=== PATIENT | female | born 1985 | race American Indian/Alaskan Native ===

== ENCOUNTER 2020-12-13 17:37 | Emergency (ER) | payer SELFPAY ==
[2020-12-13 18:07] VITALS: BP 126/76
--- NOTE | 2020-12-13 20:19 | Emergency Department Report ---
ED General Adult HPI - General Chief complaint: Pain General Stated complaint: BODY ACHES Time Seen by Provider: 12/13/20 20:13 Source: patient Mode of arrival: Ambulatory Limitations: No Limitations - History of Present Illness Initial comments: This is a 35-year-old female she presents to the emergency room complaining of body aches sore throat and a tender spot near her navel. Patient states that on she was at a bar playing pool with her friends. There is a 2 hour time span when she cannot recall when she left the location and how she got home. She does admit to drinking alcohol but denies any drug use on . Patient states she woke up at her cousin's home undressed at 2 AM she was able to get in the car and drive herself home patient's not sure what happened d during those 2 hours she has no recollection .she denies any trauma she denies any abnormal vaginal pain or discharge or trauma . She is concerned that she may have been given some type of drug because she cannot remember what happened for 2 hours. This incident occurred 48 hours ago patient states she has no proof that anything happened to her but she is concerned that today she does have a generalized body ache and there is a sore spot to her navel. She has no signs of trauma she has no chest pain shortness of breath no cough no headache just no other complaints Improves with: none Worsens with: none Associated Symptoms: denies other symptoms Treatments Prior to Arrival: none - Related Data Previous Rx's Medication Instructions Recorded Last Taken Type cephALEXin [Keflex] 500 mg PO Q8HR 7 Days #21 cap 12/13/20 Unknown Rx Allergies Allergy/AdvReac Type Severity Reaction Status Date / Time No Known Allergies Allergy Unverified 12/13/20 18:04 ED Review of Systems ROS: Stated complaint: BODY ACHES Other details as noted in HPI Comment: All other systems reviewed and negative Constitutional: no symptoms reported. denies: fever ENT: denies: throat pain, dental pain Cardiovascular: as per HPI Endocrine: no symptoms reported Gastrointestinal: as per HPI Genitourinary: as per HPI Musculoskeletal: as per HPI Skin: as per HPI Neurological: as per HPI ED Past Medical Hx - Past Medical History Previous Medical History?: No - Surgical History Past Surgical History?: Yes Hx Appendectomy: Yes Additional Surgical History: disc replacement. scolosis surgery. x 1 - Social History Smoking Status: Never Smoker Substance Use Type: Alcohol, Marijuana - Medications Home Medications: Home Medications Medication Instructions Recorded Confirmed Last Taken Type cephALEXin [Keflex] 500 mg PO Q8HR 7 Days #21 cap 12/13/20 Unknown Rx ED Physical Exam - General Limitations: No Limitations General appearance: alert, in no apparent distress - Head Head exam: Present: atraumatic - Eye Eye exam: Present: normal appearance - ENT ENT exam: Present: normal exam, mucous membranes moist, TM's normal bilaterally, other (Uvula midline, right tonsil enlarged with erythema and exudate) - Neck Neck exam: Present: normal inspection, full ROM - Respiratory Respiratory exam: Present: normal lung sounds bilaterally - Cardiovascular Cardiovascular Exam: Present: regular rate, normal heart sounds - GI/Abdominal GI/Abdominal exam: Present: soft, normal bowel sounds, other (Small raised area noted to the left navel tender to touch skin intact no erythema small raised bump in the center) - Extremities Exam Extremities exam: Present: normal inspection - Neurological Exam Neurological exam: Present: alert, oriented X3 - Psychiatric Psychiatric exam: Present: normal affect - Skin Skin exam: Present: warm, dry, intact, normal color ED Course Vital Signs 12/13/20 18:04 Temperature 97.9 F Pulse Rate 74 Respiratory 16 Rate Blood Pressure 126/76 O2 Sat by Pulse 99 Oximetry ED Medical Decision Making - Medical Decision Making 35-year-old female complaining of generalized body aches and not recalling a 2- hour span on when she was out playing pool and drinking with friends. She also complained of a tender spot on her navel. On examination she is found to have right enlarged tonsil with exudate. Her navel has a small raised bump with tenderness, rapid strep was done and is negative. I still plan to treat patient with oral antibiotics due to the appearance of her tonsil and possibly in some infection starting on her navel. - Differential Diagnosis Pharyngitis, skin infection Critical Care Time: No Critical care attestation.: If time is entered above; I have spent that time in minutes in the direct care of this critically ill patient, excluding procedure time. ED Disposition Clinical Impression: Skin infection Pharyngitis Qualifiers: Pharyngitis/tonsillitis etiology: other specified organisms Qualified Code(s): J02.8 - Acute pharyngitis due to other specified organisms Disposition: DC-01 TO HOME OR SELFCARE Is pt being admited?: No Does the pt Need Aspirin: No Condition: Stable Instructions: Pharyngitis, Cellulitis, Adult, [id number] Additional Instructions: Gargle with warm salt water least 3 times a day. Wash your skin especially the navel area with soap and water and pat dry. Take antibiotic as prescribed. Follow-up with your primary care doctor or Dr. Smith in 3 to 5 days. If you are concerned about any sexually transmitted diseases follow-up with your local health department the [facility] phone number is [phone] Prescriptions: cephALEXin [Keflex] 500 mg PO Q8HR 7 Days #21 cap Referrals: INDIRA SMITH MD [Staff Physician] - 3-5 Days Time of Disposition: 21:14
== END 2020-12-13 21:33 | disposition home or self-care (01) ==
LOC: ED 17:37
DX: J02.8 Acute pharyngitis due to other specified organisms (principal); L08.9 Local infection of the skin and subcutaneous tissue, unspecified; F12.90 Cannabis use, unspecified, uncomplicated; Z79.899 Other long term (current) drug therapy; Z90.49 Acquired absence of other specified parts of digestive tract; Z98.890 Other specified postprocedural states
CPT/HCPCS: 87116; 87430

== ENCOUNTER 2021-04-01 21:16 | Emergency (ER) | payer SELFPAY ==
[2021-04-01 22:10] VITALS: BP 109/63
[2021-04-01 23:06] LABS: Basophils % (Auto) 0.2 % (0.0-1.8); Eosinophils # (Auto) 0.1 K/mm3 (0.0-0.4); Eosinophils % (Auto) 1.2 % (0.0-4.3); Hematocrit 36.8 % (30.3-42.9); Hemoglobin 12.3 gm/dl (10.1-14.3); Lymphocytes % (Auto) 41.5 % (13.4-35.0); Mean Corpuscular HGB Conc 34 % (30-34); Mean Corpuscular Volume 86 fl (79-97); Monocytes # (Auto) 0.7 K/mm3 (0.0-0.8); Monocytes % (Auto) 10.5 % (0.0-7.3); Platelet Count 229 K/mm3 (140-440); Red Cell Distribution Width 18.6 % (13.2-15.2)
[2021-04-01 23:25] LABS: Bilirubin,Urine NEG (Negative); Blood,Urine SM (Negative); Color,Urine Yellow (Yellow); Protein,Urine <15 mg/dL mg/dL (Negative); Urobilinogen,Urine < 2.0 mg/dL (<2.0); WBC,Urine < 1.0 /HPF (0.0-6.0)
[2021-04-01 23:32] LABS: Alanine Aminotransferase 15 units/L (7-56); Blood Urea Nitrogen 7 mg/dL (7-17); Calcium 8.8 mg/dL (8.4-10.2); Hemolysis Index 7
[2021-04-01 23:50] LABS: BUN/Creatinine Ratio 14
--- NOTE | 2021-04-02 01:02 | Emergency Department Report ---
ED General Adult HPI - General Chief complaint: Abdominal Pain Stated complaint: ABD PAIN/4WKS PREG/LOW BACK PAIN Time Seen by Provider: 04/02/21 00:47 Source: patient Mode of arrival: Ambulatory Limitations: No Limitations - History of Present Illness Initial comments: 35-year-old female patient (; LMP 02/01/21) with history of appendectomy presents to the emergency department with complaints of lower abdominal pain for 2 weeks and vaginal spotting starting today. Patient has not been evaluated by an quality assurance tester at any point during her . Patient states she was seen at another emergency department approximately 2 weeks ago, at which time her beta-hCG level was approximately 300. She states an ultrasound was attempted but no fetus was visualized due to low hCG. She did not follow-up on an outpatient basis for repeat sonogram/laboratory testing. She has only noticed the vaginal spotting while using the bathroom. Denies fever, chills, nausea, vomiting, diarrhea, constipation, chest pain, shortness of breath, syncope, urinary symptoms. Denies other complaints at this time. - Related Data Previous Rx's Medication Instructions Recorded Last Taken Type cephALEXin [Keflex] 500 mg PO Q8HR 7 Days #21 cap 12/13/20 Unknown Rx Allergies Allergy/AdvReac Type Severity Reaction Status Date / Time No Known Allergies Allergy Unverified 12/13/20 18:04 ED Review of Systems ROS: Stated complaint: ABD PAIN/4WKS PREG/LOW BACK PAIN Other details as noted in HPI Other: GENERAL: Negative for fever, chills, weight change, anorexia, fatigue. ENT: Negative for ear pain, difficulty hearing, sore throat, nasal congestion, epistaxis. CARDIOVASCULAR: Negative for chest pain, palpitations, lower extremity swelling. PULMONARY: Negative for cough, dyspnea, wheezing, orthopnea, cyanosis. GASTROINTESTINAL: Positive for abdominal pain. GENITOURINARY: Positive for vaginal bleeding. MUSCULOSKELETAL: Negative for joint pain, joint swelling, myalgias, back pain, neck pain. NEUROLOGICAL: Negative for headache, seizure, syncope, paresthesias, weakness. INTEGUMENTARY: Negative for erythema, rash, diaphoresis, laceration, ecchymosis. HEMATOLOGICAL: Negative for hemoptysis, hematemesis, hematochezia, hematuria. PSYCHIATRIC: Negative for hallucinations, suicidal ideation, homicidal ideation, anxiety, depression. ED Past Medical Hx - Past Medical History Previous Medical History?: No - Surgical History Past Surgical History?: Yes Hx Appendectomy: Yes Additional Surgical History: disc replacement. scolosis surgery. x 1 - Social History Smoking Status: Current Every Day Smoker Substance Use Type: Marijuana - Medications Home Medications: Home Medications Medication Instructions Recorded Confirmed Last Taken Type cephALEXin [Keflex] 500 mg PO Q8HR 7 Days #21 cap 12/13/20 Unknown Rx ED Physical Exam - General Limitations: No Limitations - Other Other exam information: General: Awake and alert. No acute distress. Head: Atraumatic, normocephalic. Eyes: EOMI. Pupils are equal and round. Normal sclera and conjunctiva. ENT: Oral mucosa is moist. Normal pharyngeal exam. Neck: Supple. No lymphadenopathy. Pulmonary: No respiratory distress. Clear to auscultation bilaterally. Cardiac: Regular rate and rhythm. Pulses are palpable and equal bilaterally. No lower extremity cyanosis or edema. Skin: Warm and dry. No rashes. Abdomen: Soft, non-tender, non-protuberant. No guarding, rigidity, or rebound. Bowel sounds are normal. No organomegaly or masses noted. Pelvic: Female rfid systems engineer (Ric ARREDONDO) present. Normal external inspection. Cervical os is closed. No blood in the vaginal vault. No discharge. No adnexal tenderness or masses. No uterine tenderness. Back: Normal alignment. No CVA tenderness. Extremities: Symmetrical. Full range of motion intact. Neurological: Alert and oriented, appropriately interactive, no focal deficits. Psych: Cooperative. Appropriate mood and affect. Speech is evenly metered. Thoughts are logically construed. ED Course Vital Signs 04/01/21 22:08 Temperature 98.6 F Pulse Rate 74 Respiratory 18 Rate Blood Pressure 109/63 O2 Sat by Pulse 100 Oximetry ED Medical Decision Making - Lab Data Result diagrams: 04/01/21 22:33 04/01/21 22:33 - Radiology Data TECHNIQUE: Transabdominal. Transvaginal Duplex Color Doppler used: Yes. COMPARISON: None available FINDINGS: Uterus: Present. Size: 10.6 x 5.5 x 6.4 cm. Endometrial complex: Possible early gestational sac dated 6 weeks 5 days. No pole or yolk sac. Mass lesions: None. Additional findings: None. Right Ovary -- Normal. Blood flow: Normal. Cyst or mass: None. Left Ovary-- Normal. Blood flow: Normal. Cyst or mass: None. Urinary Bladder: Normal. Free Fluid: None. Additional Findings: None. IMPRESSION: 1. Possible early gestational sac. 2. No adnexal abnormality. Signer Name: Terry Garcia MD Signed: 04/02/2021 3:58 AM Workstation Name: [id number] Transcribed By: ES Dictated By: Terry Garcia MD Electronically Authenticated By: Terry Garcia MD Signed Date/Time: 04/02/21357 DD/ 6 TD/TT: - Medical Decision Making Differential diagnosis including but not limited to: ectopic , implantation bleed, septic , threatened , molar On reevaluation, patient remains stable. Repeat abdominal exam is benign. Beta HCG ~15,000. Patient is Rh (+). Ultrasound shows possible early gestational sac needed 6 weeks, 5 days, intrauterine position confirmed. Cervical os is closed. Patient is afebrile and hemodynamically stable. No clinical indication for further diagnostic work-up on an emergent basis at this time. Patient will be discharged home with referral to local quality assurance tester for close outpatient f ollow-up. She has been provided with a copy of her imaging results to take with her to her follow-up appointment. It was explained to the patient that demise has not been definitively confirmed nor ruled out during today's evaluation, and she would require further diagnostic testing on an outpatient basis to assess the viability of her . Patient expressed understanding and is agreeable to plan of care. Strict return precautions provided. Repeat exam is unremarkable and benign. History, exam, diagnostic testing, and current condition do not suggest worrisome pathology to warrant further testing, continued ED treatment, admission, or surgical evaluation at this point. Given the low probability of a significant medical illness, it would be more likely to result in harm than benefit to perform further testing at this stage. Discussed findings, presumptive diagnosis, need for follow-up and specific signs/symptoms that should prompt immediate return to the emergency department. Instructions were explained in detail to the patient in addition to giving written discharge information. Patient expressed understanding and was given the opportunity to ask questions, all of which were satisfactorily answered prior to discharge home. Critical care attestation.: If time is entered above; I have spent that time in minutes in the direct care of this critically ill patient, excluding procedure time. ED Disposition Clinical Impression: First trimester Disposition: DC-01 TO HOME OR SELFCARE Is pt being admited?: No Does the pt Need Aspirin: No Condition: Stable Instructions: First Trimester of , Abdominal Pain (ED) Additional Instructions: Take vitamins as directed. Please avoid smoking, drugs, caffeine, and alcohol. Eat a well-balanced diet. Do not eat shellfish. Drink plenty of fluids. Follow up with Dr. Odonnell, quality assurance tester, this week. Call today to schedule appointment. See referral information below. Bring a copy of today's results with you to your follow-up appointment. Do not take anything except Tylenol for pain without consulting your EQUALIZING SAW OPERATOR. Return to the Emergency Department for severe abdominal pain, loss of fluid, vaginal bleeding or any other concerns. Referrals: DIMITRIOS ODONNELL MD [Staff Physician] - 3-5 Days Time of Disposition: 04:16
[2021-04-02] MEDS ORDERED: ACETAMINOPHEN 500 MG TAB PO ONE (03:24)
--- NOTE | 2021-04-02 04:03 | Ultrasound Report ---
ULTRASOUND PELVIS INDICATION: abd pain/vaginal bleeding; LMP 02/01. TECHNIQUE: Transabdominal. Transvaginal Duplex Color Doppler used: Yes. COMPARISON: None available FINDINGS: Uterus: Present. Size: 10.6 x 5.5 x 6.4 cm. Endometrial complex: Possible early gestational sac dated 6 weeks 5 days. No pole or yolk sac. Mass lesions: None. Additional findings: None. Right Ovary -- Normal. Blood flow: Normal. Cyst or mass: None. Left Ovary-- Normal. Blood flow: Normal. Cyst or mass: None. Urinary Bladder: Normal. Free Fluid: None. Additional Findings: None. IMPRESSION: 1. Possible early gestational sac. 2. No adnexal abnormality. Signer Name: Terry Garcia MD Signed: 04/02/2021 3:58 AM Workstation Name: [id number]
== END 2021-04-02 04:26 | disposition home or self-care (01) ==
LOC: ED 21:16
DX: O26.891 Other specified pregnancy related conditions, first trimester (principal); O99.331 Smoking (tobacco) complicating pregnancy, first trimester; R10.30 Lower abdominal pain, unspecified; M54.5 Low back pain; Z79.899 Other long term (current) drug therapy; Z90.49 Acquired absence of other specified parts of digestive tract; Z98.890 Other specified postprocedural states; Z3A.01 Less than 8 weeks gestation of pregnancy
CPT/HCPCS: 36415; 76801; 76802; 76817; 80053; 81001; 84702; 84703; 85025; 86900; 86901